=== PATIENT | female | born 1955 | race Caucasian/White ===

== ENCOUNTER 2022-08-19 11:08 | Emergency (ER) | payer BC, OTHER ==
[~2022-08-19] VITALS: Ht 157.5 cm; Wt 59.7 kg
[~2022-08-19 11:08] MED LIST: ALEN70TA74 PO; CLOTCRE; NOR10T PO; OXAP-61 PO; RABE20TA19 PO; SIMV40TA18 PO
[2022-08-19 12:04] LABS: Basophils # (auto) 0 10 ^3/uL (0-0.2); Eosinophils # (auto) 0.1 10 ^3/uL (0-0.8); Hemoglobin 13.7 g/dL (12.2-16.2); Monocytes # (auto) 0.4 10 ^3/uL (0-1.3); Red Cell Distribution Width 16.5 % (11.8-14.3); White Blood Cell 6.1 10^3/uL (4.4-10.8)
[2022-08-19 12:07] LABS: Basophils % (auto) 0.4 % (0.0-2.0); Eosinophils % (auto) 1.3 % (0.0-7.0); Hematocrit 42.8 % (36.0-46.0); Lymphocytes # (auto) 1.5 10 ^3/uL (0.4-5.4); Lymphocytes % (auto) 25.4 % (10.0-50.0); Mean Corpuscular Hemoglobin 26.7 pg (28.0-32.0); Mean Corpuscular Volume 83.3 fL (80.0-100.0); Neutrophils % (auto) 65.9 % (37.0-80.0); Nucleated Red Blood Cells % 0.1 %; Red Blood Cells 5.14 10^6/uL (4.0-5.20)
[2022-08-19 12:10] LABS: BUN/Creatinine Ratio 14.4 (10.0-20.0); Potassium 3.8 mmol/L (3.5-5.1)
[2022-08-19 12:11] LABS: Calcium 9.3 mg/dL (8.5-10.1)
[2022-08-19 12:13] LABS: Bilirubin, Total 0.5 mg/dL (0.2-1.0); Total Protein 7.6 g/dL (6.4-8.2)
[2022-08-19 12:29] LABS: Urine Bacteria NONE SEEN /hpf (None Seen); Urine Blood Negative /uL (Negative); Urine Hyaline Cast MANY /lpf (0 - 2); Urine Mucus FEW (None Seen); Urine Specific Gravity 1.032 (1.001-1.035); Urine WBC 1 /hpf (0 - 5)
[2022-08-19] MEDS ORDERED: ZOFR4T PO (13:14)
[2022-08-19 13:33] VITALS: BP 115/77
== END 2022-08-19 13:34 | disposition home or self-care (01) ==
LOC: ER 11:14
DX: R10.84 Generalized abdominal pain (principal); R11.2 Nausea with vomiting, unspecified; E11.9 Type 2 diabetes mellitus without complications; E78.5 Hyperlipidemia, unspecified; Z98.51 Tubal ligation status; Z88.1 Allergy status to other antibiotic agents
CPT/HCPCS: 36415; 74176; 80053; 81001; 83690; 85025

== ENCOUNTER 2024-06-14 21:00 | Emergency (ER) | payer OTHER ==
[~2024-06-14] VITALS: Ht 157.5 cm; Wt 59.1 kg
[~2024-06-14 21:00] MED LIST changes: +ZOFR4T PO
--- NOTE | 2024-06-14 21:59 | ED.PDOC ---
History of Present Illness HPI Comments 68-year-old female presents with a chief complaint of generalized weakness x 1 week with associated nausea and diarrhea. Patient states that she was scheduled for an upcoming colonoscopy and started drinking the prep for it. Patient mentions that she has been having diarrhea since and has now become weak "to the point where I can't even take a shower". Patient denies any falls or trauma. Patient also denies any one-sided weakness or numbness. Chief Complaint: General Weakness Time Seen by MD: 21:54 Primary Care Provider: DANIEL CASH ITMANN Reviewed Notes: Medications, Allergies Allergies: Coded Allergies: Acyclovir (Verified Allergy, Unknown, 08/19/22) Levofloxacin (Verified Allergy, Unknown, 08/19/22) Home Meds Active Scripts Ondansetron Odt 4MG Tab (ZOFRAN PO) 4 Mg Tb, 4 MG PO Q6HP PRN for 5 Days, #20 TAB ODT TAB-DISSOLVE IN MOUTH, THEN SWALLOW Prov:MARTIR HERRING MD 08/19/22 Reported Medications Hydrocodone-Acetaminophen ([place]is 10/325MG) 1 Tab Tb, 1 TAB PO Q6HP 06/21/10 Simvastatin (Simvastatin) 40 Mg Tab, 40 MG PO DAILY 04/05/10 Clotrimazole W/ Betamethasone (Lotrisone) Cre, PRN 04/05/10 Oxaprozin (Daypro) 600 Mg Tab, 600 MG PO QPM 04/05/10 Alendronate Sodium (Alendronate Sodium) 70 Mg Tab, 70 MG PO QWEEKLY 04/05/10 Rabeprazole Sodium (Aciphex) 20 Mg Tab, 20 MG PO DAILY 04/05/10 Information Source: Patient Mode of Arrival: Ambulatory Severity: Moderate Timing: Days Duration: Since onset Prehospital treatment: None Past Medical History PAST MEDICAL HISTORY: DM, High Lipids Surgical History: Tonsillectomy, 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 History Family History Family History: Family hx of DM Social History Smoker: Non-Smoker Alcohol: Denies ETOH Use Drugs: Denies Drug Use Lives In: Home Constitutional: reports: weakness; denies: chills, diaphoresis, fatigue, fever, malaise, sweats, others EENTM: denies: blurred vision, double vision, ear bleeding, ear discharge, ear drainage, ear pain, ear ringing, eye pain, eye redness, hearing loss, mouth pain, mouth swelling, nasal discharge, nose bleeding, nose congestion, nose pain, photophobia, tearing, throat pain, throat swelling, voice changes, others Respiratory: denies: cough, hemoptysis, orthopnea, SOB at rest, shortness of breath, SOB with excertion, stridor, wheezing, others Cardiovascular: denies: chest pain, dizzy spells, diaphoresis, Dyspnea on exertion, edema, irregular heart beat, left arm pain, lightheadedness, palpitations, PND, syncope, others Gastrointestinal: reports: diarrhea, nausea; denies: abdomen distended, abdominal pain, blood streaked bowels, constipated, dysphagia, difficulty swallowing, hematemesis, melena, poor appetite, poor fluid intake, rectal bleeding, rectal pain, vomiting, others Genitourinary: denies: abnormal vagina bleeding, burning, dyspareunia, dysuria, flank pain, frequency, hematuria, incontinence, pain, , vagina discharge, urgency, others Neurological: denies: dizziness, fainting, headache, left sided numbness, left sided weakness, numbness, paresthesia, pre-existing deficit, right sided numbness, right sided weakness, seizure, speech problems, tingling, tremors, weakness, others Musculoskeletal: denies: back pain, gout, joint pain, joint swelling, muscle pain, muscle stiffness, neck pain, others Integumetry: denies: bruises, change in color, change in hair/nails, dryness, laceration, lesions, lumps, rash, wounds, others Allergic/Immunocompromised: denies: Difficulty Healing, Frequent Infections, Hives, Itching, others Hematologic/Lymphatic: denies: anemia, blood clots, easy bleeding, easy bruising, swollen glands, others Endocrine: denies: excessive hunger, excessive sweating, excessive thirst, excessive urination, flushing, intolerance to cold, intolerance to heat, unexplained weight gain, unexplained weight loss, others Psychiatric: denies: anxiety, bipolar disorder, depression, hopeless, panic disorder, schizophrenia, sleepless, suicidal, others All Other Systems: Reviewed and Negative Physical Exam General Appearance: No Apparent Distress, Normal HEENT: Normal ENT Inspection, Pharynx Normal, TMs Normal Neck: Full Range of Motion, Non-Tender, Normal, Normal Inspection Respiratory: Chest Non-Tender, Lungs Clear, No Accessory Muscle Use, No Respiratory Distress, Normal Breath Sounds Cardiovascular: No Edema, No JVD, No Murmur, No Gallop, Normal Peripheral Pulses, Regular Rate/Rhythm Breast Exam: Deferred Gastrointestinal: No Organomegaly, Non Tender, No Pulsatile Mass, Normal Bowel Sounds, Soft Genitalia: Deferred Pelvic: Deferred Rectal: Deferred Extremities: No calf tenderness, Normal capillary refill, Normal inspection, Normal range of motion, Non-tender, No pedal edema Musculoskeletal : Apperance: Normal Neurologic: Alert, shoe puller II-XII nml as Tested, No Motor Deficits, Normal Affect, Normal Mood, No Sensory Deficits Cerebellar Function: Normal Reflexes: Normal Skin: Dry, Normal Color, Warm Lymphatic: No Adenopathy Was a procedure done? Was a procedure done?: No Differential Dx Considerations may include: ACS, CVA, Viral Syndrome, electrolyte abnormality, infectious etiology X-Ray, Labs, Meds, VS Vital Signs Date Time Temp Pulse Resp B/P (MAP) Pulse Ox O2 Delivery O2 Flow Rate FiO2 06/14/24 22:43 84 06/14/24 22:32 93 14 97 Room Air* 0 21 06/14/24 22:19 97.5 93 14 133/71 (91) 97 97.5 06/14/24 21:56 110 06/14/24 21:30 98.6 88 18 136/68 (90) 96 98.6 Lab Test 06/14/24 23:27 06/14/24 22:33 06/14/24 22:25 06/14/24 21:58 Range/Units Troponin I High Sensitivity < 3 L < 3 L </=34 ng/L Urine Color Colorless Yellow Urine Clarity Clear Clear Urine pH 6.0 5.0-9.0 Urine Specific [place] 1.007 1.001-1.035 Urine Protein Negative Negative Urine Ketones Negative Negative Urine Blood Negative Negative /uL Urine Nitrite Negative Negative Urine Bilirubin Negative Negative Urine Urobilinogen Normal Negative mg/dL Urine Leukocyte Esterase Negative Negative /uL Urine RBC None seen 0 - 4 /hpf Urine Microscopic WBC 1 0-5 /HPF Urine Squamous Epithelial Cells None seen <5 /hpf Urine Bacteria Few H None Seen /hpf Urine Glucose Normal Normal mg/dL White Blood Count 7.1 4.4-10.8 10^3/uL Red Blood Count 4.19 4.0-5.20 10^6/uL Hemoglobin 10.6 L 12.2-16.2 g/dL Hematocrit 33.2 L 36.0-46.0 % Mean Corpuscular Volume 79.3 L 80.0-100.0 fL Mean Corpuscular Hemoglobin 25.3 L 28.0-32.0 pg Mean Corpuscular Hemoglobin Concent 31.9 L 32.0-36.0 g/dL Red Cell Distribution Width 16.8 H 11.8-14.3 % Platelet Count 222 140-450 10^3/uL Mean Platelet Volume 7.1 6.9-10.8 fL Neutrophils (%) (Auto) 46.7 37.0-80.0 % Lymphocytes (%) (Auto) 41.9 10.0-50.0 % Monocytes (%) (Auto) 8.8 0.0-12.0 % Eosinophils (%) (Auto) 2.3 0.0-7.0 % Basophils (%) (Auto) 0.3 0.0-2.0 % Neutrophils # (Auto) 3.3 1.6-8.6 10 ^3/uL Lymphocytes # (Auto) 3.0 0.4-5.4 10 ^3/uL Monocytes # (Auto) 0.6 0-1.3 10 ^3/uL Eosinophils # (Auto) 0.2 0-0.8 10 ^3/uL Basophils # (Auto) 0 0-0.2 10 ^3/uL Nucleated Red Blood Cells 0.0 % Sodium Level 140 136-145 mmol/L Potassium Level 3.9 3.5-5.1 mmol/L Chloride Level 106 98-107 mmol/L Carbon Dioxide Level 27 20-31 mmol/L Anion Gap 7 5-15 Blood Urea Nitrogen 14 9-23 mg/dL Creatinine 0.89 0.550-1.02 mg/dL Glomerular Filtration Rate Calc 70 >90 mL/min BUN/Creatinine Ratio 15.7 10.0-20.0 Serum Glucose 189 H 74-106 mg/dL Calcium Level 9.4 8.7-10.4 mg/dL POC Glucose 170 H 70-106 mg/dl Current Medications Medications (Trade) Dose Ordered Sig/Aissatou Route Start Time Stop Time Status Last Admin Sodium Chloride 1,000 ml @ 1,000 mls/hr Q1H ONCE IV 06/14/24 22:00 06/14/24 22:59 DC 06/14/24 22:00 Time of 1ST Reevaluation: 22:24 Reevaluation 1ST: Unchanged Patient Education/Counseling: Diagnosis, Treatment Family Education/Counseling: No Family Present Departure 1 Departure Time of Disposition: 00:32 (Patient presented with generalized weakness and near syncope today while in triage and should be admitted. Data: 1. I ordered and reviewed the result of at least 3 labs including a CBC, BMP, and troponin. 2. I independently interpreted the following tests: EKG which shows a sinus tachycardia and a chest x-ray which shows benign chest.Risk:This patient has a high risk of morbidity due to further diagnostic testing or treatment and may suffer from an acute cardiac, neurologic, or infectious disorder. Rationale: Patient should be admitted to the hospital for further management.) Impression: Primary Impression: Syncope and collapse Additional Impression: Generalized weakness Disposition: ADMITTED INPATIENT Admit to: Med Surg Condition: Serious Critical Care Note Critical Care Time?: No Stability Stability form required: No I personally scribed for TOMMY DANIELS MD ([email or web address]) on 06/14/24 at 21:59. Electronically submitted by Gautam Murphy ([email or web address]). TOMMY DANIELS MD Jun 14, 2024 21:59
[2024-06-14] MEDS: SODIUM CHLORIDE 0.9% 1,000 ML IV ONE (22:00)
[2024-06-14 22:19] VITALS: TEMP 97.5
[2024-06-14 22:32] VITALS: PULSE 93; RESP 14; O2SAT 97
[2024-06-14 22:47] LABS: Basophils # (auto) 0 10 ^3/uL (0-0.2); Basophils % (auto) 0.3 % (0.0-2.0); Eosinophils # (auto) 0.2 10 ^3/uL (0-0.8); Hematocrit 33.2 % (36.0-46.0); Hemoglobin 10.6 g/dL (12.2-16.2); Monocytes # (auto) 0.6 10 ^3/uL (0-1.3); Red Blood Cells 4.19 10^6/uL (4.0-5.20); White Blood Cell 7.1 10^3/uL (4.4-10.8)
[2024-06-14 22:49] LABS: Eosinophils % (auto) 2.3 % (0.0-7.0); Lymphocytes % (auto) 41.9 % (10.0-50.0); Mean Corpuscular Hemoglobin 25.3 pg (28.0-32.0); Mean Corpuscular Hgb Conc. 31.9 g/dL (32.0-36.0); Mean Corpuscular Volume 79.3 fL (80.0-100.0); Monocytes % (auto) 8.8 % (0.0-12.0); Neutrophils # (auto) 3.3 10 ^3/uL (1.6-8.6); Neutrophils % (auto) 46.7 % (37.0-80.0); Platelet Count (auto) 222 10^3/uL (140-450); Red Cell Distribution Width 16.8 % (11.8-14.3)
[2024-06-14 22:51] LABS: Chloride 106 mmol/L (98-107); Potassium 3.9 mmol/L (3.5-5.1); Sodium 140 mmol/L (136-145)
[2024-06-14 22:52] LABS: Anion Gap 7 (5-15); Calcium 9.4 mg/dL (8.7-10.4); Carbon Dioxide 27 mmol/L (20-31)
[2024-06-14 22:57] LABS: BUN/Creatinine Ratio 15.7 (10.0-20.0); Blood Urea Nitrogen 14 mg/dL (9-23)
[2024-06-14 23:03] LABS: Glucose 189 mg/dL (74-106)
[2024-06-14 23:09] LABS: Urine Bacteria FEW /hpf (None Seen); Urine Blood Negative /uL (Negative); Urine Clarity Clear (Clear); Urine Color Colorless (Yellow); Urine Protein, UAD Negative (Negative); Urine Specific Gravity 1.007 (1.001-1.035); Urine Squamous Epithelial Cell None Seen /hpf (<5); Urine Urobilinogen Normal (Negative); Urine WBC 1 /HPF (0-5)
--- NOTE | 2024-06-14 23:12 | DVH ---
CHEST RADIOGRAPH Indication: weakness Technique: Single frontal view of the chest was obtained Comparison: Lung windows from prior CT examination of the abdomen of July 2022 FINDINGS: Patient has had surgery involving the right shoulder. Heart size is normal there may be a enlarged l eft atrium. The tressa is splayed heart size otherwise normal there are no infiltrates or effusions. Increased peribronchial markings and vascular markings bilaterally. Lung windows from prior CT examination demonstrates increased interlobular interstitial markings mild pulmonary prominence. There is atherosclerotic disease in the coronary arteries prominent left atriu m. . IMPRESSION: 1. Chronic changes
[2024-06-15] MEDS: SODIUM CHLORIDE 0.9% 1,000 ML IV ONE (01:03)
--- NOTE | 2024-06-15 01:05 | DVH ---
EXAM: CT HEAD WITHOUT CONTRAST INDICATION: syncope TECHNIQUE: CT of the head without intravenous contrast. Radiation Dose : 1. Head: CT Dose: CTDI volume is 49.39 mGy. Dose-length product is 1083.89 mGy*cm The dose indicators for CT are the volume Computed Tomography (CT) Dose Index (CTDIvol) and the Dose Length Product (DLP), and are measured in units of mGy and mGy-cm, respectively. These indicators are not patient dose, but values generated from the CT scanner acquisition factors. The report includes radiation exposure data for exposures received during this examination. COMPARISON: None FINDINGS: There is no evidence of acute intracranial hemorrhage, extra-axial collection, mass effect, midline s hift, herniation or hydrocephalus. The ventricles, sulci and cisterns are age appropriate. The dong-white differentiation is intact. Patchy periventricular and subcortical white matter hypoattenuation is nonspecific but may be related to small vessel ischemic disease. The visualized paranasal sinuses and mastoid air cells are clear. The surrounding soft tissues and osseous structures are unremarkable. IMPRESSION: 1. No acute intracranial abnormality. Radiation optimization: All CT scans at this facility use at least one of these dose optimization sofia hniques: automated exposure control mA and/or kV adjustment per patient size (includes targeted exam s where dose is matched to clinical indication) or iterative reconstruction.
[2024-06-15] MEDS: KETOROLAC TROMETH 30 MG/ML 1ML VIAL IV ONE (01:33)
--- NOTE | 2024-06-15 01:41 | ED.PDOC ---
Departure 1 Departure Time of Disposition: 01:39 (Upon reassessment patient is feeling significantly better would like to go home. Patient with offered admission however patient wants to leave. Patient is hemodynamically stable and we will discharge patient home.) Impression: Primary Impression: Syncope and collapse Additional Impression: Generalized weakness Disposition: 01 HOME / SELF CARE / HOMELESS Condition: Stable Additional Instructions: Your workup today was benign. You can take Tylenol or Motrin as needed for pain. It is important you stay well hydrated and well rested, You should follow up with your regular doctor within 1 week. You should stay well rested and well hydrated. If your symptoms worsen or you have any other concerns please return to the emergency room. Discharged With: Self TOMMY DANIELS MD Jun 15, 2024 01:41
[2024-06-15 03:25] VITALS: BP 137/72; PULSE 71; RESP 15; O2SAT 96
--- NOTE | 2024-06-15 04:24 | ECG ---
[facility] Test Date: 2024-06-14 Test Time: 21:56:32 Pat Name: GUSTAVO POWELL Department: ED Room: Gender: F Ophthalmic Tech: YF : 1955 Requested By: TOMMY DANIELS Order Number: [id number] Reading MD: Santos Truong Measurements Intervals [place] Rate: 110 P: 21 MO: 132 QRS: -13 QRSD: 85 T: 44 QT: 349 QTc: 473 Interpretive Statements Sinus tachycardia Ventricular bigeminy Electronically Signed On 06-16-2024 13:11:22 PDT by Santos Truong Please click the below link to view image of tracing.
--- NOTE | 2024-06-15 06:25 | ECG ---
[facility] Test Date: 2024-06-14 Test Time: 22:43:30 Pat Name: GUSTAVO POWELL Department: ED Room: Gender: F Woodyard Operator: YAKELIN : 1955 Requested By: TOMMY DANIELS Order Number: [id number] Reading MD: Santos Truong Measurements Intervals [place] Rate: 84 P: -11 [place]: 144 QRS: -12 QRSD: 85 T: 54 QT: 359 QTc: 425 Interpretive Statements Sinus rhythm Ventricular bigeminy Electronically Signed On 06-16-2024 13:11:46 PDT by Santos Truong Please click the below link to view image of tracing.
--- NOTE | 2024-06-15 06:26 | ECG ---
[facility] Test Date: 2024-06-15 Test Time: 00:35:25 Pat Name: GUSTAVO POWELL Department: ED Room: Gender: F Operational Trainer: YAKELIN : 1955 Requested By: TOMMY DANIELS Order Number: [id number] Reading MD: Santos Truong Measurements Intervals [place] Rate: 79 P: -6 [place]: 147 QRS: -12 QRSD: 87 T: 39 QT: 365 QTc: 419 Interpretive Statements Sinus rhythm Ventricular trigeminy Electronically Signed On 06-16-2024 13:13:38 PDT by Santos Truong Please click the below link to view image of tracing.
== END 2024-06-15 03:44 | disposition home or self-care (01) ==
LOC: ER 21:00
DX: R55 Syncope and collapse (principal); R53.1 Weakness; R11.0 Nausea; R19.7 Diarrhea, unspecified; E11.9 Type 2 diabetes mellitus without complications; E78.5 Hyperlipidemia, unspecified; Z90.89 Acquired absence of other organs; Z98.51 Tubal ligation status; Z79.899 Other long term (current) drug therapy; Z88.1 Allergy status to other antibiotic agents; Z88.8 Allergy status to other drugs, medicaments and biological substances
CPT/HCPCS: 36415; 70450; 71045; 80048; 81001; 82947; 84484; 85025; 93005; 96361; 96374; 99284; J1885; J7030; 82962